=== PATIENT | female | born 1980 | race Two or more races ===

== ENCOUNTER 2016-07-08 09:45 | Emergency (ER) | payer OTHER, BC ==
[~2016-07-08] VITALS: Ht 157.5 cm; Wt 63.5 kg
[~2016-07-08 09:45] MED LIST: METR500T4 PO
[2016-07-08 09:50] VITALS: BP 157/85
[2016-07-08] MEDS ORDERED: TRAM-29 PO (10:32)
[2016-07-08] MEDS ORDERED: METH-37 PO (10:32)
--- NOTE | 2016-07-08 10:33 | PHYS DOC ---
Past Medical History Past Medical History: No Pertinent History Past Surgical History: Additional Information: nonsmoker Alcohol Use: None Drug Use: None Adult General Chief Complaint Chief Complaint: Neck Pain HPI HPI Patient is a 35 year old female who presents with neck pain after heavy lifting 3 days ago. She was lifting heavy furniture at work when the pain started. She denies radiation of the pain. She has not had weakness or numbness. She reports headache. She took 3 ibuprofen at 0700 today. She does not have a PCP. Review of Systems Review of Systems Constitutional: Denies fever or chills. [] Eyes: Denies change in visual acuity, redness, or eye pain. [] Musculoskeletal: Denies back pain or joint pain. Reports neck pain. Integument: Denies rash or skin lesions. [] Neurologic: Denies focal weakness or sensory changes. [] Allergies Allergies Allergies Coded Allergies Type Severity Reaction Last Updated Verified No Known Drug Allergies 03/14/16 No Physical Exam Physical Exam Constitutional: Well developed, well nourished, no acute distress, non-toxic appearance. [] HENT: Normocephalic, atraumatic, bilateral external ears normal, oropharynx moist, no oral exudates, nose normal. [] Eyes: PERRLA, EOMI, conjunctiva normal, no discharge. [] Neck: Normal range of motion, no midline tenderness, supple, no stridor. The lateral paraspinal muscle tenderness with moderate muscle spasm. Skin: Warm, dry, no erythema, no rash. [] Back: No midline tenderness, no CVA tenderness. Bilateral trapezius tenderness with muscle spasm. Extremities: No tenderness, no cyanosis, no clubbing, ROM intact, no edema. 2+ radial and ulnar pulses bilaterally. Less than 2 second capillary refill in the fingers bilaterally. Light touch sensation intact distally in fingers bilaterally. Neurologic: Alert and oriented X 3, normal motor function, normal sensory function, no focal deficits noted. CN II-XII grossly intact. Psychologic: Affect normal, judgement normal, mood normal. [] Current Patient Data Vital Signs Vital Signs Date Time Temp Pulse Resp B/P Pulse Ox O2 Delivery O2 Flow Rate FiO2 07/08/16 09:50 97.6 78 18 100 Room Air 97.6 EKG EKG [] Radiology/Procedures Radiology/Procedures [] Course & Med Decision Making Course & Med Decision Making Pertinent Labs and Imaging studies reviewed. (See chart for details) [] Dragon Disclaimer Dragon Disclaimer This electronic medical record was generated, in whole or in part, using a voice recognition dictation system. Departure Departure Impression: Primary Impression: Neck strain Disposition: 01 HOME, SELF-CARE Condition: STABLE Referrals: NO PCP (PCP) Patient Instructions: Muscle Strain, [id number] Additional Instructions: You were seen today for a muscle strain in your neck. Please take the prescribed medications as directed. Do not drive or operate heavy machinery while taking pain medication or muscle relaxers. To help with your eye pain, you may apply heat, practice gentle stretching and light massage. Please avoid heavy lifting or other strenuous activity that may further strain your neck or back. Please follow up with a primary care provider if your pain continues. Return to the emergency department if you have weakness, numbness, or other new or concerning symptoms. Scripts Methocarbamol (Robaxin)500 Mg [id number] Mg PO QID #20 TAB Prov:YUN NAJERA 07/08/16 Tramadol Hcl (Ultram)50 Mg [id number] Mg PO Q6H PRN PAIN #20 TAB Prov:YUN NAJERA 07/08/16 Problem Qualifiers Primary Impression: Neck strain Encounter type: initial encounter Qualified Code: S16.1XXA - Strain of muscle, fascia and tendon at neck level, initial encounter YUN NAJERA Jul 08, 2016 10:33
== END 2016-07-08 11:06 | disposition home or self-care (01) ==
LOC: ER 09:45
DX: S16.1XXA Strain of muscle, fascia and tendon at neck level, initial encounter (principal); R51 Headache; X58.XXXA Exposure to other specified factors, initial encounter; Y93.89 Activity, other specified; Y92.69 Other specified industrial and construction area as the place of occurrence of the external cause; Y99.8 Other external cause status
CPT/HCPCS: 99283

== ENCOUNTER 2016-10-17 08:39 | Emergency (ER) | payer BC, OTHER ==
[~2016-10-17] VITALS: Ht 157.5 cm; Wt 63.5 kg
[~2016-10-17 08:39] MED LIST changes: +METH-37 PO; -METR500T4 PO; +METR500T8 PO; +TRAM-48 PO
[2016-10-17 08:45] VITALS: BP 123/68
--- NOTE | 2016-10-17 09:09 | RAD ---
Right ankle, 3 views, 10/17/2016: History: Ankle injury There is deformity of the lateral malleolus compatible with an old healed fracture. There are small well-defined calcific densities at the tip of the lateral malleolus and inferior to the tip of the medial malleolus which are probably due to old trauma. There is spurring at the talonavicular articulation and along the posterior aspect of the subtalar joint. There is mild subcutaneous edema about the ankle. IMPRESSION: 1. Old posttraumatic and degenerative changes as described above. 2. No acute bony abnormality is detected.
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
== END 2016-10-17 09:44 | disposition home or self-care (01) ==
LOC: ER 08:39
DX: M25.571 Pain in right ankle and joints of right foot (principal); X50.9XXA Other and unspecified overexertion or strenuous movements or postures, initial encounter; Y93.01 Activity, walking, marching and hiking; Y99.8 Other external cause status; Y92.89 Other specified places as the place of occurrence of the external cause
CPT/HCPCS: 73610; 99284-25

== ENCOUNTER 2018-02-25 13:53 | Emergency (ER) | payer OTHER, BC ==
[~2018-02-25] VITALS: Ht 157.5 cm; Wt 63.5 kg
[2018-02-25 14:21] VITALS: BP 117/60
--- NOTE | 2018-02-25 15:15 | RAD ---
SHOULDER 2+V RIGHT History: RT SHOULDER PAIN SINCE LIFTING BOXES AT WORK ON Sunday02/22/18. . Comparison: None are available No acute fracture or bone destruction. Joints and soft tissues appear intact. Impression: No acute radiographic abnormality Electronically signed by: Joselito Hernandez MD (02/25/2018 3:12 PM) [id number]
[2018-02-25] MEDS ORDERED: TRAM50TA PO (15:21)
--- NOTE | 2018-02-25 21:48 | PHYS DOC ---
Past Medical History Past Medical History: No Pertinent History Past Surgical History: Alcohol Use: None Drug Use: None Adult General Chief Complaint Chief Complaint: SHOUDLER HPI HPI Patient is a 37 year old female presents with right shoulder pain after heavy lifting yesterday while at work. Denies motor weakness loss of sensation, fall or direct trauma. No medications or therapy prior to ED arrival. Denies chronic right shoulder injury or pain syndrome. No other symptoms or complaints. Patient has not been evaluated for this condition prior to today's visit.. [] Review of Systems Review of Systems Review of symptoms as per history of present illness. All other review symptoms are negative. [] All other systems were reviewed and found to be within normal limits, except as documented in this note. Allergies Allergies Allergies Coded Allergies Type Severity Reaction Last Updated Verified No Known Drug Allergies 03/14/16 No Physical Exam Physical Exam Constitutional: Well developed, well nourished, no acute distress, non-toxic appearance. [] HENT: Normocephalic, atraumatic, bilateral external ears normal, oropharynx moist, no oral exudates, nose normal. [] Eyes: PERRLA, EOMI, conjunctiva normal, no discharge. [] Extremities: Right shoulder, no bruising, only tenderness, deformity. Soft tissue tenderness located over the lateral deltoid region with pain with active range of motion and passive range of motion. Negative arm drop test.. [] Neurologic: Alert and oriented X 3, normal motor function, normal sensory function, no focal deficits noted. [] Psychologic: Affect normal, judgement normal, mood normal. [] Current Patient Data Vital Signs Vital Signs Date Time Temp Pulse Resp B/P (MAP) Pulse Ox O2 Delivery O2 Flow Rate FiO2 02/25/18 14:21 98.2 76 20 117/60 (79) 98 Room Air 98.2 EKG EKG [] Radiology/Procedures Radiology/Procedures [Right shoulder: No obvious displaced fracture radiology report] Course & Med Decision Making Course & Med Decision Making Pertinent Labs and Imaging studies reviewed. (See chart for details) [Shoulder injury with concern for possible partial rotator cuff injury. Patient instructed to restrict right arm use until further evaluation by PCP or referral to orthopedic surgeon. In the meantime, will treat supportively.] Dragon Disclaimer Dragon Disclaimer This electronic medical record was generated, in whole or in part, using a voice recognition dictation system. Departure Departure Impression: Primary Impression: Sprain of shoulder, right Disposition: 01 HOME, SELF-CARE Condition: GOOD Patient Instructions: Shoulder Sprain Additional Instructions: You were evaluated in the emergency department for right shoulder injury. Imaging studies were performed and are nondiagnostic. Your symptoms are consistent with a possible rotator cuff injury. Please avoid heavy lifting and right arm use as this may make your condition worse. Please follow-up with your PCP or work comp physician for reevaluation and further management. In the meantime, take ibuprofen and tramadol as needed for pain. Scripts Tramadol Hcl (TRAMADOL HCL) 50 Mg Tablet 50 MG PO Q6H PRN for PAIN for 3 Days, #15 TAB 0 Refills Prov: MINESH RODRIGUEZ DO 02/25/18 MINESH RODRIGUEZ DO Feb 25, 2018 21:47
== END 2018-02-25 15:30 | disposition home or self-care (01) ==
LOC: ER 13:53
DX: S43.401A Unspecified sprain of right shoulder joint, initial encounter (principal); X50.0XXA Overexertion from strenuous movement or load, initial encounter; Y93.89 Activity, other specified; Y92.89 Other specified places as the place of occurrence of the external cause; Y99.8 Other external cause status
CPT/HCPCS: 73030; 99284

== ENCOUNTER 2018-06-01 23:09 | Emergency (ER) | payer OTHER, BC ==
[~2018-06-01] VITALS: Ht 157.5 cm; Wt 63.5 kg
[~2018-06-01 23:09] MED LIST changes: +METR-34 PO; -METR500T8 PO; +TRAM50TA PO
[2018-06-01 23:35] VITALS: BP 146/83
--- NOTE | 2018-06-02 00:11 | PHYS DOC ---
Past Medical History Past Medical History: No Pertinent History Past Surgical History: Alcohol Use: None Drug Use: None Adult General Chief Complaint Chief Complaint: SHOULDER INJURY HPI HPI Patient is a 37 yo female who presents with complaint of R shoulder injury. Patient reports she has had chronic r shoulder pain since February 2018 d /t her responsibilities for lifting heavy things at work, however the pain became acutely worse yesterday when she was lifting a heavy box overhead and felt sudden increase in pain inRr shoulder. She says she feels the discomfort on the posterior aspect of her r shoulder, down into R arm, and up into R side of neck. Pain made worse with internal rotation. She denies any tingling or decrease in sensation. Patient denies any additional symptoms. She is currently on her period. Review of Systems Review of Systems Eyes: Denies change in visual acuity, redness, or eye pain [] Respiratory: Denies cough or shortness of breath [] Cardiovascular: Denies chest pain GI: Denies abdominal pain, nausea, vomiting, bloody stools or diarrhea []] Musculoskeletal:Admits R shoulder pain worse with lifting objects overhead. Denies pain elsewhere. Integument: Denies new rash or skin lesions [] Neurologic: Denies headache, focal weakness or sensory changes [] Complete systems were reviewed and found to be within normal limits, except as documented in this note. Current Medications Current Medications Current Medications Medications (Trade) Dose Ordered Sig/[facility] Start Time Stop Time Status Last Admin Dose Admin Ketorolac Tromethamine (Toradol 30mg Vial) 30 mg 1X ONCE 06/02/18 00:30 06/02/18 00:31 DC 06/02/18 00:18 30 MG Allergies Allergies Allergies Coded Allergies Type Severity Reaction Last Updated Verified No Known Drug Allergies 03/14/16 No Physical Exam Physical Exam Constitutional: Well developed, well nourished, no acute distress, non-toxic appearance. [] HENT: Normocephalic, atraumatic, oropharynx moist, no oral exudates, nose normal. [] Eyes EOMI, conjunctiva normal, no discharge. [] Neck: Normal range of motion, no tenderness, supple, no stridor. [] Cardiovascular:Heart rate regular rhythm, no murmur [] Lungs & Thorax: Bilateral breath sounds clear to auscultation [] Abdomen: soft, no tenderness, no masses, no pulsatile masses. [] Skin: Warm, dry, no erythema, large birthmark present posterior aspect r shoulder and down R arm. Back: No tenderness, no CVA tenderness. [] Extremities: AROM and PROM r shoulder limited in external and internal rotation as compared to L. Muscle strength 5/5. Reflexes intact and equal. Dermatomal sensation intact and equal BL. Current Patient Data Vital Signs Vital Signs Date Time Temp Pulse Resp B/P (MAP) Pulse Ox O2 Delivery O2 Flow Rate FiO2 06/01/18 23:35 98.3 87 18 146/83 (104) 99 Room Air 98.3 EKG EKG [] Radiology/Procedures Radiology/Procedures [] Impressions: R shoulder 2 view: Preliminary read, no acute bony abnormality. Course & Med Decision Making Course & Med Decision Making Patient is 37 yo female who presents with complaint of R shoulder pain following lifting a heavy box at work yesterday. Patient has chronic shoulder pain at baseline but presented to the ED d/t acute worsening. On physical exam patient experiences pain with abduction and internal rotation of R arm. There are no palpable deformities, no erythema, no ecchymosis present. 2 view radiograph of R shoulder revealed no acute bony processes. Patient received toradol shot in ED for pain. Discussed with patient that we can evaluate bony processes in ED with imaging, but her symptoms and physical exam lead us to believe she may have a soft tissue injury. We discussed with patient that she needs to follow up with Dr. Manuel or another orthopedic surgeon. Also discharged patient with prescription for motrin and orphenadrine. Finally, we fit the patient in an arm sling, gave her instructions for icing her shoulder frequently, and gave her a note excusing her from work for the next two days and recommending light duty work for the remainder of the week. Patient voiced understanding and agreement with the plan. Dragon Disclaimer Dragon Disclaimer This electronic medical record was generated, in whole or in part, using a voice recognition dictation system. Departure Departure Impression: Primary Impression: Shoulder pain, acute Disposition: 01 HOME, SELF-CARE Condition: STABLE Referrals: YONY AGUILAR MD (PCP) MATIAS MANUEL MD Patient Instructions: Shoulder Pain, [id number] Additional Instructions: Make sure to take affected arm out of sling and do shoulder circles: 10 times in each direction. Please perform 3 times daily. Scripts Ibuprofen (MOTRIN IB) 200 Mg Tablet 600 MG PO Q8HRS PRN for PAIN, #20 TAB Prov: YONY SALAZAR DO 06/02/18 Orphenadrine Citrate (ORPHENADRINE CITRATE) 100 Mg Tablet.er 100 MG PO BID PRN for MUSCLE PAIN, #14 Prov: YONY SALAZAR DO 06/02/18 Problem Qualifiers Primary Impression: Shoulder pain, acute Laterality: right Qualified Codes: M25.511 - Pain in right shoulder YONY SALAZAR DO Jun 02, 2018 00:11
[2018-06-02] MEDS ORDERED: KETOROLAC 30 MG/ML VIAL. IM ONE (00:30)
[2018-06-02] MEDS ORDERED: IBUP200T44 PO (00:51)
[2018-06-02] MEDS ORDERED: ORPH100T PO (00:51)
--- NOTE | 2018-06-02 04:18 | RAD ---
Examination: 3 views of the right shoulder HISTORY: History of right shoulder pain, lifting injury COMPARISON: 02/25/2018. Findings: The humerus head is within the glenoid. There is no acute fracture or dislocation identified. IMPRESSION: No acute osseous findings. Electronically signed by: Gera Luis MD (06/02/2018 4:14 AM) [facility]
== END 2018-06-02 01:05 | disposition home or self-care (01) ==
LOC: ER 23:09
DX: M25.511 Pain in right shoulder (principal); G89.29 Other chronic pain; X50.0XXA Overexertion from strenuous movement or load, initial encounter; Y93.89 Activity, other specified; Y92.69 Other specified industrial and construction area as the place of occurrence of the external cause; Y99.0 Civilian activity done for income or pay
CPT/HCPCS: 73030; 96372; 99283; J1885

== ENCOUNTER 2018-06-13 08:38 | Emergency (ER) | payer OTHER, BC ==
[~2018-06-13] VITALS: Ht 157.5 cm; Wt 63.5 kg
[~2018-06-13 08:38] MED LIST changes: +IBUP200T44 PO; -METR-34 PO; +METR-84 PO; +ORPH100T PO
[2018-06-13 09:01] VITALS: BP 163/93
--- NOTE | 2018-06-13 09:23 | RAD ---
3 view left shoulder 06/13/2017 Clinical indications: Lifting boxes with shoulder pain. COMPARISON: None. FINDINGS: No acute fracture or traumatic malalignment. Joint spaces are maintained. The periarticular soft tissues are unremarkable. Normal bony alignment. IMPRESSION: No acute osseous abnormality. Electronically signed by: Usman Hayes MD (06/13/2018 9:19 AM) [facility]
[2018-06-13] MEDS ORDERED: METH4TAB2 PO (09:47)
--- NOTE | 2018-06-13 09:47 | PHYS DOC ---
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 Patient states she's been taking ibuprofen. She rates her pain a 10 out of 10. Review of Systems Review of Systems Constitutional: Denies fever or chills [] Eyes: Denies change in visual acuity, redness, or eye pain [] HENT: Denies nasal congestion or sore throat [] Respiratory: Denies cough or shortness of breath [] Cardiovascular: No additional information not addressed in HPI [] GI: Denies abdominal pain, nausea, vomiting, bloody stools or diarrhea [] : Denies dysuria or hematuria [] Musculoskeletal: Denies back pain or joint pain [] Integument: Denies rash or skin lesions [] Neurologic: Denies headache, focal weakness or sensory changes [] Endocrine: Denies polyuria or polydipsia [] All other systems were reviewed and found to be within normal limits, except as documented in this note. Allergies Allergies Allergies Coded Allergies Type Severity Reaction Last Updated Verified No Known Drug Allergies 03/14/16 No Physical Exam Physical Exam Constitutional: Well developed, well nourished, no acute distress, non-toxic appearance. [] HENT: Normocephalic, atraumatic, bilateral external ears normal, oropharynx moist, no oral exudates, nose normal. [] Eyes: PERRLA, EOMI, conjunctiva normal, no discharge. [] Neck: Normal range of motion, no tenderness, supple, no stridor. [] Cardiovascular:Heart rate regular rhythm, no murmur [] Lungs & Thorax: Bilateral breath sounds clear to auscultation [] Abdomen: Bowel sounds normal, soft, no tenderness, no masses, no pulsatile masses. [] Skin: Warm, dry, no erythema, no rash. [] Back: No tenderness, no CVA tenderness. [] Extremities: No tenderness, no cyanosis, no clubbing, ROM intact, no edema. [] Neurologic: Alert and oriented X 3, normal motor function, normal sensory function, no focal deficits noted. [] Psychologic: Affect normal, judgement normal, mood normal. [] Current Patient Data Vital Signs Vital Signs Date Time Temp Pulse Resp B/P (MAP) Pulse Ox O2 Delivery O2 Flow Rate FiO2 06/13/18 09:01 97.7 86 20 163/93 (116) 100 Room Air 97.7 EKG EKG [] Radiology/Procedures Radiology/Procedures [] Impressions: [facility] [address] [place] [address] IMAGING REPORT Signed PATIENT: DONNIE MOON ACCOUNT: [id number] : 1980 LOCATION: ER AGE: 37 SEX: F EXAM STATUS: REG ER ORD. PHYSICIAN: JOJO DUARTE APRN REASON: pain PROCEDURE: SHOULDER 2+V LEFT 3 view left shoulder 06/13/2017 Clinical indications: Lifting boxes with shoulder pain. COMPARISON: None. FINDINGS: No acute fracture or traumatic malalignment. Joint spaces are maintained. The periarticular soft tissues are unremarkable. Normal bony alignment. IMPRESSION: No acute osseous abnormality. 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 Patient states she's been taking ibuprofen. She rates her pain a 10 out of 10. Heart and oriented. Walks with steady gait. Patient has range of motion that is intact in her hips and the affected shoulder. There is no swelling, deformity, edema, bruising. Shoulder x-ray shows no acute findings. Patient is diagnosed with musculoskeletal strain and sciatica. Patient to continue taking Ibuprofen and will be given a steroid dose pack. Patient to follow up with primary care. Dragon Disclaimer Dragon Disclaimer This electronic medical record was generated, in whole or in part, using a voice recognition dictation system. Departure Departure Impression: Primary Impression: Sprain of left shoulder Additional Impression: Sciatica of right side Disposition: HOME, SELF-CARE Condition: STABLE Referrals: YONY AGUILAR MD (PCP) Patient Instructions: Muscle Strain, Sciatica Additional Instructions: Follow-up with primary care provider. Continue taking ibuprofen. Take medication as prescribed. Try ice or heat to help with pain. Scripts Methylprednisolone (MEDROL) 4 Mg Tab.ds.pk 1 PKG PO UD, #1 PKG Prov: JOJO DUARTE IT PROGRAM AUDITOR 06/13/18 Problem Qualifiers Primary Impression: Sprain of left shoulder Encounter type: initial encounter Shoulder sprain type: unspecified sprain Qualified Codes: S43.402A - Unspecified sprain of left shoulder joint, initial encounter JOJO DUARTE IT PROGRAM AUDITOR Jun 13, 2018 09:47
== END 2018-06-13 10:54 | disposition home or self-care (01) ==
LOC: ER 08:38
DX: S43.492A Other sprain of left shoulder joint, initial encounter (principal); M25.551 Pain in right hip; M54.31 Sciatica, right side; X50.0XXA Overexertion from strenuous movement or load, initial encounter; Z98.890 Other specified postprocedural states; Y93.89 Activity, other specified; Y92.512 Supermarket, store or market as the place of occurrence of the external cause; Y99.0 Civilian activity done for income or pay
CPT/HCPCS: 73030; 99283